=== PATIENT | female | born 1970 | race Two or more races ===

== ENCOUNTER 2020-02-28 09:42 | Emergency (ER) | payer OTHER ==
[~2020-02-28] VITALS: Ht 172.7 cm; Wt 108.9 kg
[2020-02-28] MEDS ORDERED: HYZAAR 50-12.51 EACH PO (09:51)
== END 2020-02-28 11:35 | disposition home or self-care (01) ==
LOC: ER 09:42
DX: S80.02XA Contusion of left knee, initial encounter (principal); S80.01XA Contusion of right knee, initial encounter; S93.692A Other sprain of left foot, initial encounter; M12.562 Traumatic arthropathy, left knee; M12.561 Traumatic arthropathy, right knee; W18.09XA Striking against other object with subsequent fall, initial encounter; Y93.89 Activity, other specified; Y99.8 Other external cause status; Y92.018 Other place in single-family (private) house as the place of occurrence of the external cause

== ENCOUNTER 2023-07-20 04:24 | Emergency (ER) | payer OTHER ==
[~2023-07-20] VITALS: Ht 172.7 cm; Wt 108.9 kg
[~2023-07-20 04:24] MED LIST: HYZAAR 50-12.51 EACH PO
== END 2023-07-20 05:57 | disposition home or self-care (01) ==
LOC: ER 04:25
DX: J03.90 Acute tonsillitis, unspecified (principal)